=== PATIENT | male | born 2000 | race Caucasian/White ===

== ENCOUNTER 2020-07-30 01:30 | Emergency (ER) | payer SELFPAY ==
[~2020-07-30] VITALS: Ht 175.3 cm; Wt 72.6 kg
[~2020-07-30 01:30] MED LIST: IBUP-44 PO
[2020-07-30 01:40] VITALS: BP 136/76
--- NOTE | 2020-07-30 01:43 | NUR ---
TO LOBBY A/W BED AMBULATORY
--- NOTE | 2020-07-30 02:30 | NUR ---
SEEN AND EXAMINED BY EMILY WITH ORDERS AND CARRIED OUT
--- NOTE | 2020-07-30 04:30 | NUR ---
ALL RESULTS BACK AND NOTED BY ERMD , AND FOR D/C
[2020-07-30 05:08] VITALS: BP 121/78
--- NOTE | 2020-07-30 05:08 | NUR ---
Patient discharged with v/s stable. Written and verbal after care instructions given and explained. Patient alert, oriented and verbalized understanding of instructions. Ambulatory with by parent. All questions addressed prior to discharge. ID band removed. Patient advised to follow up with PMD. Rx of IBUPTOFEN 600MG given. Patient educated on indication of medication including possible reaction and side effects. Opportunity to ask questions provided and answered.
== END 2020-07-30 05:08 | disposition home or self-care (01) ==
LOC: MED 01:30
DX: S30.0XXA Contusion of lower back and pelvis, initial encounter (principal); Z79.899 Other long term (current) drug therapy; W17.89XA Other fall from one level to another, initial encounter; Y93.89 Activity, other specified; Y92.89 Other specified places as the place of occurrence of the external cause; Y99.8 Other external cause status
CPT/HCPCS: 72100; 99283